=== PATIENT | male | born 1975 | race Caucasian/White ===

== ENCOUNTER 2023-12-30 08:17 | Emergency (ER) | payer OTHER, SELFPAY ==
[2023-12-30 08:24] VITALS: BP 139/87; PULSE 51; TEMP 36.8; O2SAT 99; BMI 35.9
--- NOTE | 2023-12-30 08:40 | ED_ITS ---
HPI HPI - Back Pain/Injury General Chief Complaint: Back Pain/Injury Stated Complaint: flank pain Time Seen by Provider: 12/30/23 08:40 Source: patient Mode of arrival: walk-in Limitations: no limitations History of Present Illness HPI Narrative: Patient here presenting with right-sided flank pain earlier this morning. He does not have a history of stones. It does radiate to his right abdominal and hip area. He is afebrile at this time. Vital signs are noted and are stable. Related Data Home Medications ?Medication ?Instructions ?Recorded ?Confirmed fenofibrate 160 mg tablet 160 mg PO DAILY 12/30/23 12/30/23 fexofenadine 180 mg tablet 180 mg PO DAILY 12/30/23 12/30/23 Allergies Allergy/AdvReac Type Severity Reaction Status Date / Time No Known Drug Allergies Allergy Verified 12/30/23 08:24 Opioid HPI Opioid Management Most Recent Opioid Data: Last Pain Scale 9 12/30/23 09:03 Last MAR Pain Assessment 12/30/23 09:03 Exam Narrative Exam Narrative: Awake alert very pleasant pacing in the room holding his right flank. We did have him twist turn and rotate flex and extend and this did not reproduce any pain or discomfort in his back. There is no evidence of shingles or skin lesions or trauma or injury to his back area. He has no abdominal pain. Cognition mentation are all normal he does not appear ill or toxic. Does not have any shortness of breath or respiratory distress. Constitutional Vital Signs, click to edit/add: Last Vital Signs Temp 98.2 F 12/30/23 08:24 Pulse 51 L 12/30/23 08:24 Resp 18 12/30/23 08:24 BP 139/87 12/30/23 08:24 Pulse Ox 99 12/30/23 08:24 O2 Del Method Room Air 12/30/23 08:24 Course Vital Signs Vital signs: Vital Signs Temperature 98.2 F 12/30/23 08:24 Pulse Rate 51 L 12/30/23 08:24 Respiratory Rate 18 12/30/23 08:24 Blood Pressure 139/87 12/30/23 08:24 Pulse Oximetry 99 12/30/23 08:24 Oxygen Delivery Method Room Air 12/30/23 08:24 Temperature 98.2 F 12/30/23 08:24 Pulse Rate 51 L 12/30/23 08:24 Respiratory Rate 18 12/30/23 08:24 Blood Pressure 139/87 12/30/23 08:24 Pulse Oximetry 99 12/30/23 08:24 Oxygen Delivery Method Room Air 12/30/23 08:24 MDM - Back Pain/Injury MDM Narrative Medical decision making narrative: This CT scan confirms our clinical suspicion. He does have a 4 mm distal stone on the right side. There is mild hydronephrosis. He was given analgesics here in the ER and treatment recommendations for outpatient including follow-up with urology. He will be placed on Flomax [facility] and on Toradol. His white count is 11.9. No white blood cells noted in the urine Lab Data Labs: Lab Results 12/30/23 Range/Units 08:30 WBC 11.9 H (4.0-11.0) 10^3/uL RBC 5.33 (4.70-6.10) 10^6/uL Hgb 15.2 (14.0-18.0) g/dL Hct 48.0 (42.0-54.0) % MCV 90.1 (80.0-94.0) fL MCH 28.5 (25.9-34.0) pg MCHC 31.7 (29.9-35.2) g/dL RDW 14.3 (11.0-15.0) % Plt Count 228 (150-450) 10^3/uL MPV 11.7 (9.5-13.5) fL Neut % (Auto) 60.5 (43.0-75.0) % Lymph % (Auto) 27.7 (20.5-60.0) % [place] % (Auto) 6.9 (1.7-12.0) % Eos % (Auto) 3.8 (0.9-7.0) % Baso % (Auto) 0.8 (0.2-2.0) % Neut # (Auto) 7.2 H (1.4-6.5) 10^3/uL Lymph # (Auto) 3.3 (1.2-3.8) 10^3/uL [place] # (Auto) 0.8 (0.3-0.8) 10^3/uL Eos # (Auto) 0.5 (0.0-0.7) 10^3/uL Baso # (Auto) 0.1 (0.0-0.1) 10^3/uL Abs Immat Gran (auto) 0.04 H (0.00-0.03) 10^3/uL Imm/Tot Granulo (auto) 0.3 (0.0-0.5) % Sodium 142 (136-145) mmol/L Potassium 4.1 (3.5-5.1) mmol/L Chloride 105 (98-107) mmol/L Carbon Dioxide 29.5 (21.0-32.0) mmol/L Anion Gap 11.6 BUN 19.0 H (7.0-18.0) mg/dL Creatinine 1.53 H (0.70-1.30) mg/dL Est GFR ( Amer) 60 (>=60) Est GFR (Non-Af Amer) 49 L (>=60) BUN/Creatinine Ratio 12.4 Glucose 116 H (74-106) mg/dL Calcium 9.0 (8.5-10.1) mg/dL Urine Color Dk. yellow (YELLOW) Urine Clarity Clear (CLEAR) Urine pH 5.5 (5.0-9.0) Ur Specific [place] >=1.030 A (1.005-1.025) Urine Protein Negative (NEG/TRACE) mg/dL Urine Glucose (UA) Negative (NEGATIVE) mg/dL Urine Ketones Negative (NEGATIVE) mg/dL Urine Occult Blood Small A (NEGATIVE) Urine Nitrite Negative (NEGATIVE) Urine Bilirubin Small A (NEGATIVE) Urine Urobilinogen 1.0 (0.2-1.0) EU/dL Ur Leukocyte Esterase Negative (NEGATIVE) Urine RBC 0-2 (0-2) #/HPF Urine WBC None seen (NONE SEEN) #/HPF Ur Squamous Epith Cells Few A (NONE/RARE) #/LPF Urine Crystals Seen A (None Seen) #/HPF Calcium Oxalate Crystal Moderate Urine Bacteria None seen (NONE SEEN) #/HPF Urine Mucus Large A (NONE SEEN) Ur Culture Indicated? No Discharge Plan Discharge Stand Alone Forms: Portal Instructions Chief Complaint: Back Pain/Injury Clinical Impression: Kidney stone on right side Patient Disposition: Home, Self-Care Time of Disposition Decision: 09:55 Prescriptions / Home Meds: No Action fenofibrate 160 mg tablet 160 mg PO DAILY fexofenadine 180 mg tablet 180 mg PO DAILY Print Language: Albanian Additional Instructions: Flomax/[facility] [place]/Toradol. Follow-up with Referrals: AUDIE ARIZMENDI [Primary Care Provider] - 1 week
--- NOTE | 2023-12-30 08:43 | CT_ITS ---
[address] [address] Patient Name: TIGIST AHUMADA MRN: [id number] date: 1975 Sex: M Assigned Patient Location: ER Current Patient Location: Accession/Order Number: [id number] Exam Date: 12/30/2023 08:55 Report Date: 12/30/2023 09:43 At the request of: SENA AKERS Procedure: CT abdomen pelvis wo con EXAMINATION: CT abdomen pelvis wo con HISTORY: Kidney stone ; right flank pain COMPARISON: No relevant comparison available. TECHNIQUE: Axial, Coronal, and Sagittal images were obtained without and/or with IV contrast as indicated by examination type. Dose reduction techniques were achieved by using automated exposure control and/or adjustment of mA and/or kV according to patient size and/or use of iterative reconstruction technique. FINDINGS: LUNG BASES: No visible pulmonary or pleural disease. LIVER: No enlargement, atrophy, suspicious density, or significant focal lesion. BILIARY: 2 stones within noninflamed gallbladder, largest is approximately 10 mm. PANCREAS: No lesion, fluid collection, or abnormal duct dilatation. SPLEEN: No enlargement or focal lesion. ADRENALS: No mass or enlargement. KIDNEYS: Slight right hydronephrosis secondary to a 4 mm partially obstructing stone within distal right ureter near the ureterovesical junction. No additional urinary tract calculi. BOWEL/MESENTERY: A few noninflamed diverticula involving the distal colon. No visible mass, obstruction, or bowel wall thickening. Normal appendix. AORTA/VASCULAR: No aneurysm or dissection. RETROPERITONEUM: No mass or adenopathy. LYMPH NODES: No adenopathy. URINARY BLADDER: No visible focal wall thickening, lesion, or calculus. PELVIC ORGANS: No visible mass. Pelvic organs appropriate for patient age. ABDOMINAL WALL: No mass or hernia. BONES: No bony lesion or fracture. OTHER: Negative. CT/CT abdomen pelvis wo con IMPRESSION: 1. Mild right hydronephrosis secondary to a partially obstructing 4 mm stone within distal right ureter. 2. Cholelithiasis. 3. Distal colonic diverticulosis. Electronically authenticated by: JAIRO PRECIADO Date: 12/30/2023 09:43
[2023-12-30 08:58] LABS: Basophils Absolute Auto 0.1 10^3/uL (0.0-0.1); Basophils Percent Auto 0.8 % (0.2-2.0); Bilirubin Urine SMALL (NEGATIVE); Blood Urine SMALL (NEGATIVE); Clarity Urine CLEAR (CLEAR); Color Urine DK. YELLOW (YELLOW); Eosinophils Absolute Auto 0.5 10^3/uL (0.0-0.7); Eosinophils Percent Auto 3.8 % (0.9-7.0); Glucose Urine UA NEGATIVE (NEGATIVE); Hemoglobin 15.2 g/dL (14.0-18.0); Immature Granulocytes Abs Auto 0.04 10^3/uL (0.00-0.03); Immature Granulocytes Pct Auto 0.3 % (0.0-0.5); Ketones Urine NEGATIVE (NEGATIVE); Leukocyte Esterase Urine NEGATIVE (NEGATIVE); Lymphocytes Absolute Auto 3.3 10^3/uL (1.2-3.8); Lymphocytes Percent Auto 27.7 % (20.5-60.0); Mean Corpuscular HGB Conc 31.7 g/dL (29.9-35.2); Mean Corpuscular Hemoglobin 28.5 pg (25.9-34.0); Mean Corpuscular Volume 90.1 fL (80.0-94.0); Mean Platelet Volume 11.7 fL (9.5-13.5); Monocytes Absolute Auto 0.8 10^3/uL (0.3-0.8); Monocytes Percent Auto 6.9 % (1.7-12.0); Neutrophils Absolute Auto 7.2 10^3/uL (1.4-6.5); Neutrophils Percent Auto 60.5 % (43.0-75.0); Nitrite Urine NEGATIVE (NEGATIVE); Platelet Count 228 10^3/uL (150-450); Protein Urine NEGATIVE (NEG/TRACE); Red Blood Count 5.33 10^6/uL (4.70-6.10); Red Cell Distribution Width 14.3 % (11.0-15.0); Specific Gravity Urine >=1.030 (1.005-1.025); White Blood Count 11.9 10^3/uL (4.0-11.0); pH Urine 5.5 (5.0-9.0)
[2023-12-30] MEDS: KETOROLAC TROMETHAMINE 30 MG/ML VIAL IVP (09:03)
[2023-12-30 09:13] LABS: Anion Gap 11.6; BUN Creatinine Ratio 12.4; Carbon Dioxide 29.5 mmol/L (21.0-32.0); Chloride 105 mmol/L (98-107); Estimated GFR (African America 60 (>=60); Estimated GFR (Non-African Ame 49 (>=60); Glucose 116 mg/dL (74-106); Potassium 4.1 mmol/L (3.5-5.1); Sodium 142 mmol/L (136-145)
[2023-12-30] MEDS: ONDANSETRON PF 4 MG/2 ML VIAL IV (09:34)
[2023-12-30 09:38] LABS: Urine Microscopic Indicated YES
[2023-12-30 09:49] LABS: Bacteria Urine NONE SEEN #/HPF (NONE SEEN); Calcium Oxalate Crystals Urine MODERATE; Crystals Seen? Seen #/HPF (None Seen); Mucus Urine LARGE (NONE SEEN); RBC Urine 0-2 #/HPF (0-2); Squamous Epithelial Cell Urine FEW #/LPF (NONE/RARE); WBC Urine NONE SEEN #/HPF (NONE SEEN)
[2023-12-30 09:50] LABS: Urine Culture Indicated NO
[2023-12-30 09:57] VITALS: BP 133/80; PULSE 50; O2SAT 97
== END 2023-12-30 10:08 | disposition home or self-care (01) ==
PROVIDERS: Emergency Provider Emergency Medicine Emergency Medical Services; PCP Family Medicine
DX: N20.0 Calculus of kidney (principal)
CPT/HCPCS: 36415; 74176; 80048; 81001; 85025; 96374; 96375; 99284; J1885; J2405